=== PATIENT | male | born 1975 | race Caucasian/White ===

== ENCOUNTER 2017-01-11 22:21 | Emergency (ER) | payer OTHER | END 2017-01-11 23:26 | disposition home or self-care (01) | LOC: ER 22:21 | DX: M25.561 Pain in right knee (principal); I10 Essential (primary) hypertension; Z90.49 Acquired absence of other specified parts of digestive tract; Z88.5 Allergy status to narcotic agent | CPT/HCPCS: 73564; 99283 ==